=== PATIENT | female | born 1955 | race Caucasian/White ===

== ENCOUNTER 2023-07-05 06:08 | Day surgery (SDC) | payer MEDICARE, OTHER, SELFPAY ==
[2023-07-05 06:28] VITALS: BP 147/100; PULSE 63; RESP 16; TEMP 36.3; O2SAT 98
[2023-07-05 06:29] VITALS: BMI 28.5
[2023-07-05] MEDS: TETRACAINE 0.5% OPHTH 1 DROP EYE-LEFT ×2 (06:30→06:35)
[2023-07-05] MEDS: KETOROLAC OPHTH 0.5% 1 DROP EYE-LEFT ×3 (06:30→06:40)
[2023-07-05] MEDS: SODIUM CHLORIDE 0.9 % (FLUSH) 10 ML SYRINGE IVF (06:35)
--- NOTE | 2023-07-05 06:44 | SUR.PREOP ---
The eye drops brought by the patient (Ketorolac and Prednisolone) are examined and I have determined they are labeled by the patient's pharmacy for this patient as prescribed by the surgeon. The bottles are intact, recently obtained and appear to be correct.
[2023-07-05] MEDS: TETRACAINE 0.5% OPHTH 2 DROP EYE-LEFT (07:12)
[2023-07-05] MEDS: BALANCED SALT IRRIG SOLN 15 ML EYE-LEFT (07:17)
--- NOTE | 2023-07-05 07:20 | W.ANESCHARGE ---
Anesthesia Charges Start Date/Time Anesthesia Start Date: 07/05/23 Anesthesia Start Time: 07:10 Stop Date/Time Anesthesia Stop Date: 07/05/23 Anesthesia Stop Time: 07:40
[2023-07-05 07:40] VITALS: BP 149/92; PULSE 56; RESP 16; TEMP 36.3; O2SAT 99
--- NOTE | 2023-07-05 08:38 | W.PM.OPTPROC ---
Procedure Note Date of procedure: 07/05/23 Will [facility] bill your pro fee for this procedure?: Yes Procedure Description: SURGEON: Yadira Gonzalez MD PREOPERATIVE DIAGNOSIS: Nuclear sclerotic cataract, left eye. POSTOPERATIVE DIAGNOSIS: Nuclear sclerotic cataract, left eye. NAME OF OPERATION: Phacoemulsification of cataract with posterior chamber intraocular lens implantation in the left eye. ANESTHESIA: Topical. ESTIMATED BLOOD LOSS: Less than 2 cc. COMPLICATIONS: None. PATHOLOGY SPECIMEN: None. INDICATIONS: See consult note for details. The risks, benefits and alternatives of the procedure were explained to the patient, who elected to proceed and signed informed consent to do so. PROCEDURE: The patient was brought to the pre-holding area where the left eye was identified as the operative eye. I placed my initials above this eye. The patient received eye drops consisting of 0.5% tetracaine, 1% tropicamide, 10% phenylephrine, and 0.5% ketorolac. The patient was then brought to the operating room where the left eye was again identified as the operative eye. The eye was prepped with Betadine and draped in the usual sterile ophthalmic fashion. A #15 super-sharp blade was used to create a paracentesis site. 1% non-preserved intracameral lidocaine was injected into the anterior chamber. Endocoat was injected into the anterior chamber. A 2.4 mm keratome was used to create a three-plane self-sealing incision 1 mm anterior to the temporal limbus. A cystotome was used to create an anterior capsular leaflet. The Utrata forceps were used to extend this to form a continuous curvilinear capsulorrhexis. Hydrodissection was performed. The cataract was removed with phacoemulsification using the wcjcah-tnu-fkripdh technique. The irrigation and aspiration tip was used to remove the remaining cortex. Healon was injected into the capsular bag. An DANIA ZCB00 intraocular lens of 22.5 diopters was injected into the capsular bag. The irrigation and aspiration tip was used to remove the remaining viscoelastic. Balanced salt solution on a cannula was used to hydrate the wound, and the wound was found to be watertight. The pupil was noted to be round. DISPOSITION: The patient was taken to the recovery room and discharged to home in stable condition. The patient was instructed to call me or go to the emergency department with any sudden change, including dramatic loss of vision, severe pain in the eye or eyebrow region, nausea, or vomiting. The patient will follow up in the clinic tomorrow morning.
--- NOTE | 2023-07-05 10:20 | W.ANESCHARGE ---
Anesthesia Charges Start Date/Time Anesthesia Start Date: 07/05/23 Anesthesia Start Time: 07:10 Stop Date/Time Anesthesia Stop Date: 07/05/23 Anesthesia Stop Time: 07:40
== END 2023-07-05 08:11 | disposition home or self-care (01) ==
LOC: OR 06:09
PROVIDERS: PCP Physician Assistant Medical; Visit Provider Ophthalmology
PROC: (CPT 66984; principal; 2023-07-05 06:15)
DX: H25.12 Age-related nuclear cataract, left eye (principal)
CPT/HCPCS: 66984; 142; A9270; J2250; J3010; V2632

== ENCOUNTER 2023-07-19 06:05 | Day surgery (SDC) | payer MEDICARE, OTHER, SELFPAY ==
[2023-07-19] MEDS: TETRACAINE 0.5% OPHTH 1 DROP EYE-RIGHT ×2 (06:30→06:36)
[2023-07-19] MEDS: KETOROLAC OPHTH 0.5% 1 DROP EYE-RIGHT ×3 (06:34→06:48)
[2023-07-19 06:39] VITALS: BP 145/98; PULSE 55; RESP 16; TEMP 36.5; O2SAT 98
[2023-07-19 06:50] VITALS: BMI 28.3
[2023-07-19] MEDS: SODIUM CHLORIDE 0.9 % (FLUSH) 10 ML SYRINGE IVF (06:52)
[2023-07-19] MEDS: TETRACAINE 0.5% OPHTH 2 DROP EYE-RIGHT (07:12)
[2023-07-19] MEDS: BALANCED SALT IRRIG SOLN 15 ML EYE-RIGHT (07:15)
--- NOTE | 2023-07-19 07:18 | W.ANESCHARGE ---
Anesthesia Charges Start Date/Time Anesthesia Start Date: 07/19/23 Anesthesia Start Time: 07:07 Stop Date/Time Anesthesia Stop Date: 07/19/23 Anesthesia Stop Time: 07:40
[2023-07-19 07:51] VITALS: BP 156/90; PULSE 53; RESP 16; TEMP 36.1; O2SAT 98
--- NOTE | 2023-07-19 07:58 | W.ANESCHARGE ---
Anesthesia Charges Start Date/Time Anesthesia Start Date: 07/19/23 Anesthesia Start Time: 07:07 Stop Date/Time Anesthesia Stop Date: 07/19/23 Anesthesia Stop Time: 07:40
--- NOTE | 2023-07-19 09:10 | P.OPTPRC_ITS ---
Procedure Note Date of procedure: 07/19/23 Will [facility] bill your pro fee for this procedure?: Yes Procedure Description: SURGEON: Yadira Gonzalez MD PREOPERATIVE DIAGNOSIS: Nuclear sclerotic cataract, right eye. POSTOPERATIVE DIAGNOSIS: Nuclear sclerotic cataract, right eye. NAME OF OPERATION: Phacoemulsification of cataract with posterior chamber intraocular lens implantation in the right eye. ANESTHESIA: Topical. ESTIMATED BLOOD LOSS: Less than 2 cc. COMPLICATIONS: None. PATHOLOGY SPECIMEN: None. INDICATIONS: See consult note for details. The risks, benefits and alternatives of the procedure were explained to the patient, who elected to proceed and s igned informed consent to do so. PROCEDURE: The patient was brought to the pre-holding area where the right eye was identified as the operative eye. I placed my initials above this eye. The patient received eye drops consisting of 0.5% tetracaine, 1% tropicamide, 10% phenylephrine, and 0.5% ketorolac. The patient was then brought to the operating room where the right eye was again identified as the operative eye. The eye was prepped with Betadine and draped in the usual sterile ophthalmic fashion. A #15 super-sharp blade was used to create a paracentesis site. 1% non-preserved intracameral lidocaine was injected into the anterior chamber. Endocoat was injected into the anterior chamber. A 2.4 mm keratome was used to create a three-plane self-sealing incision 1 mm anterior to the temporal limbus. A cystotome was used to create an anterior capsular leaflet. The Utrata forceps were used to extend this to form a continuous curvilinear capsulorrhexis. Hydrodissection was performed. The cataract was removed with phacoemulsification using the [id number]-bos-rusyfpl technique. The irrigation and aspiration tip was used to remove the remaining cortex. Healon was injected into the capsular bag. An DANIA ZCB00 intraocular lens of 22.0 diopters was injected into the capsular bag. The irrigation and aspiration tip was used to remove the remaining viscoelastic. Balanced salt solution on a cannula was used to hydrate the wound, and the wound was found to be watertight. The pupil was noted to be round. DISPOSITION: The patient was taken to the recovery room and discharged to home in stable condition. The patient was instructed to call me or go to the emergency department with any sudden change, including dramatic loss of vision, severe pain in the eye or eyebrow region, nausea, or vomiting. The patient will follow up in the clinic tomorrow morning.
== END 2023-07-19 08:00 | disposition home or self-care (01) ==
PROVIDERS: PCP Physician Assistant Medical; Visit Provider Ophthalmology
PROC: (CPT 66984; principal; 2023-07-19 06:15)
DX: H25.11 Age-related nuclear cataract, right eye (principal)
CPT/HCPCS: 66984; 142; J2250; J3010; V2632

== ENCOUNTER 2025-09-02 10:29 | Day surgery (SDC) | payer MEDICARE, OTHER, SELFPAY ==
[2025-09-02] VITALS (23 sets, daily range): BP systolic 103–179; BP diastolic 66–97; PULSE 65–92; RESP 12–18; TEMP 36.3–37.5; O2SAT 94–100; BMI 28.8
[2025-09-02] MEDS: OXYCODONE (CR) 10 MG TAB.ER.12H PO (11:38)
[2025-09-02] MEDS: CELECOXIB 200 MG CAPSULE PO (11:38)
[2025-09-02] MEDS: ACETAMINOPHEN 500 MG TABLET 1000 MG PO ×3 (11:38→23:59)
[2025-09-02] MEDS: LACTATED RINGERS 1000 ML 1,000 ML 100 ML IV ×2 (11:45→13:00)
[2025-09-02] MEDS: SODIUM CHLORIDE 0.9 % (FLUSH) 10 ML SYRINGE IVF (11:45)
--- NOTE | 2025-09-02 12:14 | SUR.PREOP ---
2 small closed scabbed over areas noted on left elbow from sling rubbing on skin.
[2025-09-02] MEDS: MIDAZOLAM HCL 1 MG/ML inj IVP (12:17)
--- NOTE | 2025-09-02 12:19 | SUR.PREOP ---
TIME?OUT:?1216 PT/RN/MDA?VERIFICATION?OF?SURGICAL?SITE,?PROCEDURE,?AND?CONSENT OBTAINED?PRIOR?TO?INVASIVE?PROCEDURE. all in agreement
[2025-09-02] MEDS: TRANEXAMIC ACID 100 MG/ML INJ 1000 MG IV (12:45)
--- NOTE | 2025-09-02 13:03 | W.PM.NB ---
Nerve Block Nerve Block Time Seen by Provider: 12:20 Date Seen: 09/02/25 Type of block requested by surgeon for post-operative analgesia: supraclavicular Side: left Time out performed: Yes Verification of patient name: Yes Verification of date of : Yes Site marking: site marked Name of person performing procedure: Misael Continuous monitoring Was continuous monitoring of O2 sat, B/P, cardiac technologist, recorded every 15 minutes?: Yes Procedure Checklist: sterile prep, needles and gloves Ultrasound guided. Images saved: Yes Medications given in 5ml increments after negative aspiration: Marcaine %: 0.25 mL: 5 and Exparel mL: 10 Needle gauge: 22 Patient tolerated procedure well: Yes Block Charges Block Charge (with Pro Fee): Brachial Plexus Use of Ultrasound Machine for Block: Yes- US Guidance/pain block
--- NOTE | 2025-09-02 13:04 | P.ANES_ITS ---
Anesthesia Charges Start Date/Time Anesthesia Start Date: 09/02/25 Anesthesia Start Time: 12:29 Stop Date/Time Anesthesia Stop Date: 09/02/25 Anesthesia Stop Time: 16:24 Summary Extremes of Age - Over 70 or under 1: MDA Coding CPT Codes CPT Codes: ANESTH SHOULDER REPLACEMENT - 32125 ([id number]) P3 - PATIENT W/SEVERE SYS DISEASE, QK - RN PRIVATE DUTY 2-4 CNCRNT ANES PROC, QX - ROAD ROLLER OPERATOR SVC W/ MD MED DIRECTION Additional Codes: Summary - Extremes of Age - Over 70 or under 1: MDA ([id number])
--- NOTE | 2025-09-02 13:04 | W.ANESCHARGE ---
Anesthesia Charges Start Date/Time Anesthesia Start Date: 09/02/25 Anesthesia Start Time: 12:29 Stop Date/Time Anesthesia Stop Date: 09/02/25 Anesthesia Stop Time: 16:24 Summary Extremes of Age - Over 70 or under 1: MDA Coding CPT Codes CPT Codes: ANESTH SHOULDER REPLACEMENT - 47878 ([id number]) P3 - PATIENT W/SEVERE SYS DISEASE, QK - MARKETING GRAPHICS SPECIALIST 2-4 CNCRNT ANES PROC, QX - INSOLVENCY PRACTITIONER SVC W/ MD MED DIRECTION Additional Codes: Summary - Extremes of Age - Over 70 or under 1: MDA ([id number])
--- NOTE | 2025-09-02 15:41 | CRLHL7_ITS ---
For Patients: As a result of the Century Cures Act, medical imaging exams and procedure reports are released immediately into your electronic medical record. You may view this report before your referring provider. If you have questions, please contact your health care provider. Indication: LT SHOULDER POST OP TSA Technique: Two views left shoulder Findings/Impression: Hardware from a left shoulder arthroplasty is in satisfactory position. Bone alignment is normal. No sign of acute fracture. Postop changes are within normal limits. Dictated by Michael Edward MD @ 09/03/2025 8:28:22 AM (Electronically Signed)
--- NOTE | 2025-09-02 16:14 | PM.IMCN1 ---
Date of Consult Patient: Vinny Patient Consult date: 09/02/25 Requesting Physician: Orthopedics Primary Care Provider: Tiffanie Boykin PA-C Consult Narrative Reason for consult: Medical management Narrative: Vanita Allen is a 70 year old female past medical history significant for hypertension, hyperlipidemia, CAD, history of NSTEMI, vitamin-D deficiency is postop day #0 status post left total shoulder with Dr. Gonzalez. Postoperatively, patient Remains quite sleepy. Mildly nauseous, no vomiting. Pain is currently well managed. There have been no perioperative complications or nursing concerns reported. Estimated total blood loss documented as 300ml. Updated and reviewed the active medical problems, past medical history, past surgical history, social history, allergies and medications in our electronic EMR. Review of Systems Narrative: REVIEW OF SYSTEMS: Complete review of systems performed and negative unless otherwise stated in HPI or below. 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) ?Z96.611 - Presence of right artificial shoulder joint (ICD-10) History of phacoemulsification of cataract of left eye with intraocular lens implantation (07/05/23) ?Z98.42 - Cataract extraction status, left eye (ICD-10) ?Z96.1 - Presence of intraocular lens (ICD-10) History of phacoemulsification of cataract of right eye with intraocular lens implantation (07/19/23) ?Z98.41 - Cataract extraction status, right eye (ICD-10) ?Z96.1 - Presence of intraocular lens (ICD-10) Family History Father Myocardial infarction Sister Heart problem Sister Heart problem Social History What is your current living situation?: I presently have a place to live Problems where you live: no known problems In the past 12 months, utilities in danger of being shut off: no In past 12 months, lack of transportation kept you from medical appts, meetings, work, or getting things needed for daily living: no In the past 12 mos, have been you worried that your food would run out before you had money to buy more?: never true In the past 12 mos, the food you bought just didn't last and you didn't have money to buy more?: never true Smoking Status: Never smoker Do you use any of these nicotine containing products: None Second hand tobacco smoke exposure: No How often do you have a drink containing alcohol: 4 or more times a week Alcohol type: wine How many standard drinks containing alcohol do you have on a typical day: 1 or 2 How often do you have six or more drinks on one occasion: Never AUDIT-C Alcohol total score: 4 Non-prescribed substance use: denies use Caffeine: No How often does anyone, including family, friends and others, physically hurt you: never How often does anyone, including family, friends and others, insult or talk down to you: never How often does anyone, including family, friends and others, threaten you with harm: never How often does anyone, including family, friends and others, scream or curse at you: never Are you using contraception or practicing any form of control: No Meds Home Medications and Allergies Home Medications ?Medication ?Instructions ?Recorded ?Confirmed ?Type ascorbic acid (vitamin C) 1,000 mg 1 g PO DAILY 06/20/22 09/02/25 History tablet aspirin 81 mg tablet,delayed 81 mg PO DAILY 06/20/22 09/02/25 History release atorvastatin 80 mg tablet 80 mg PO DAILY 06/20/22 09/01/25 History calcium 600 mg (as 1 tab PO DAILY 06/20/22 09/02/25 History carbonate)-vitamin D3 10 mcg (400 unit) tablet ezetimibe 10 mg tablet 10 mg PO DAILY 06/20/22 09/02/25 History metoprolol tartrate 25 mg tablet 25 mg PO BID 06/20/22 09/02/25 History multivitamin 1 tab PO QDAY 06/20/22 09/02/25 History nitroglycerin 0.4 mg sublingual 0.4 mg buccal Q5M PRN 06/20/22 09/01/25 History tablet olmesartan 20 mg tablet 20 mg PO DAILY 07/19/23 09/02/25 History latanoprost 0.005 % eye drops 1 drp ophthalmic (eye) QDAY 06/10/25 09/01/25 History acetaminophen 500 mg capsule 500 - 1,000 mg (1 - 2 x 500 mg) PO 09/02/25 Rx Q6H PRN pain #100 caps oxycodone 5 mg tablet 2.5 - 5 mg (0.5 - 1 x 5 mg) PO 09/02/25 Rx Q4-6H PRN Pain #42 tabs sennosides 8.6 mg tablet (Senna 17.2 mg (2 x 8.6 mg) PO BID PRN 09/02/25 Rx Lax) constipation #100 tabs Allergies Allergy/AdvReac Type Severity Reaction Status Date / Time nickel Allergy Mild Rash Verified 09/01/25 10:01 Exam Narrative: Exam Narrative: PHYSICAL EXAM General: Pleasant, conversant, NAD HEENT: Normocephalic, atraumatic, sclera white, EOMI, oral mucosa moist Cardiovascular: RRR, S1S2. No pitting edema Pulmonary: CTA bilaterally without rhonchi, rales, expiratory wheezes. No dyspnea Neurological: Alert, answering questions appropriately, cranial nerves intact, no focal findings Extremities: No gross joint deformity or swelling. Postoperative dressing in place, dry. immobilizer in place. Neurovascularly intact Skin: Warm, dry. Const: Vital Signs, click to edit/add: Vital Signs - 24 hr 09/02/25 11:55 09/02/25 12:20 09/02/25 12:23 Temperature 98.0 F Pulse Rate 68 66 67 Respiratory Rate 16 16 14 Blood Pressure 179/93 H 152/79 H 150/79 H Pulse Oximetry 100 97 98 Oxygen Delivery Me thod Room Air Nasal Cannula Nasal Cannula Oxygen Flow Rate 2 2 Assessment and Plan Assessment and plan (1) Osteoarthritis of left shoulder: Problem comment: -POD#0 s/p Left Total Shoulder, Dr. Gonzalez 09/02/25 -perioperative management including pain management and anticoagulation per Orthopedic surgery -encourage postoperative pulmonary hygiene following total shoulder -PT OT consults -EBL 300 mL, check hemoglobin in the morning -plan to discharge home with Spouse tomorrow Status: Chronic (2) Hypertension: Problem comment: - resume home meds on discharge, consider morning dose if necessary, monitoring pressures postoperatively Status: Acute Plan May resume home medications upon discharge. Consider antihypertensives in the morning if necessary. Hospital medicine team will sign off. Please contact our service with any questions or concerns. Total Time Spent Total Time Spent: Today I spent 55 minutes seeing the patient, reviewing Expanse and EPIC notes/diagnostics, discussing the care plan with our care time that includes social work, PT/OT, pharmacy, RT, mcfp and documenting my impressions and plan in the medical record.
--- NOTE | 2025-09-02 16:26 | P.ANES_ITS ---
Anesthesia Charges Start Date/Time Anesthesia Start Date: 09/02/25 Anesthesia Start Time: 12:29 Stop Date/Time Anesthesia Stop Date: 09/02/25 Anesthesia Stop Time: 16:24 Summary Extremes of Age - Over 70 or under 1: SHODER FILLER Coding CPT Codes CPT Codes: ANESTH SHOULDER REPLACEMENT - 09814 ([id number]) P3 - PATIENT W/SEVERE SYS DISEASE, QK - INTERFACE ANALYST 2-4 CNCRNT ANES PROC, QX - SHODER FILLER SVC W/ MD MED DIRECTION Additional Codes: Summary - Extremes of Age - Over 70 or under 1: SHODER FILLER ([id number])
--- NOTE | 2025-09-02 16:26 | W.ANESCHARGE ---
Anesthesia Charges Start Date/Time Anesthesia Start Date: 09/02/25 Anesthesia Start Time: 12:29 Stop Date/Time Anesthesia Stop Date: 09/02/25 Anesthesia Stop Time: 16:24 Summary Extremes of Age - Over 70 or under 1: SOCIAL WORKER PSYCHIATRIC Coding CPT Codes CPT Codes: ANESTH SHOULDER REPLACEMENT - 05946 ([id number]) P3 - PATIENT W/SEVERE SYS DISEASE, QK - PRIVACY ATTORNEY 2-4 CNCRNT ANES PROC, QX - SOCIAL WORKER PSYCHIATRIC SVC W/ MD MED DIRECTION Additional Codes: Summary - Extremes of Age - Over 70 or under 1: SOCIAL WORKER PSYCHIATRIC ([id number])
--- NOTE | 2025-09-02 16:38 | P.ORPRC_ITS ---
Procedure Note Date of procedure: 09/02/25 Procedure: PREOPERATIVE DIAGNOSIS: Left shoulder end-stage glenohumeral joint osteoarthritis, 2 part proximal humerus fracture POSTOPERATIVE DIAGNOSIS: Left shoulder end-stage glenohumeral joint osteoarthritis, 2 part proximal humerus fracture NAME OF OPERATION: Left upper extremity reverse shoulder arthroplasty, biceps tenodesis SURGEON: Uriah Gonzalez MD INSTALLATION SERVICE REPRESENTATIVE: Hoda Hoyos PA-C ANESTHESIA: General endotracheal ESTIMATED BLOOD LOSS: 300 mL COMPLICATIONS: None SPECIMENS: None DRAINS: None PREOPERATIVE ANTIBIOTICS: Ancef 2 grams IMPLANTS: 1. Tornier 29mm x 35 mm +3 lateralized baseplate 2. 36mm standard glenosphere 3. 8 Perform humeral fracture stem 4. 36mm polyethylene INDICATIONS: The patient is a 70-year-old with a longstanding history of severe, unrelenting left shoulder pain secondary to end-stage glenohumeral joint osteoarthritis. She fell last week, sustaining a 2 part proximal humerus fracture. Operative intervention was offered. The risks, benefits and expected outcomes were discussed in detail. These included but were not limited to: Infection, bleeding, injury to blood vessel or nerve, venous thromboembolism. All questions were answered to their satisfaction. Use of an surgical physician assistant was necessary throughout the case for patient positioning and safety, soft tissue retraction, and closure. A modifier 22 should be added to this case. The bone loss, deformity and stiffness, in addition to the fracture deformity added complexity to the case. This more than doubled the time typically required to complete the case. PROCEDURE: General anesthesia was administered. The patient was placed in the lazy beach chair position on the operating room table. The left upper extremity was prepped and draped in the usual sterile fashion. A standard deltopectoral incision was made. Subcutaneous dissection was taken with electrocautery to the deltopectoral interval. The cephalic vein was mobilized, lateral branches were cauterized. The vein was taken medially with the pectoralis. We bluntly entered the deltopectoral interval. We freed up the deltoid. The static retractor was placed. The clavipectoral fascia and CA ligament were divided. The circumflex vessels were controlled with electrocautery. The biceps was dissected out of the bicipital groove, was tagged with a #2 FiberWire suture and divided proximally. A fiberWire suture was placed in the subscapularis. The subscap was subperiosteally elevated off of the lesser tuberosity. We resected the huge inferior osteophyte off of the glenoid and humeral head. This allowed us to expose the head fragment. It was controlled with a Nesbitt reduction clamp and externally rotated. Articular cartilage was gone and the head was almost concave, secondary to the osteoarthritis deformity. A conservative head oste otomy was made. The head and tuberosity fragment were displaced posteriorly. This allowed us to deliver the shaft into the wound. There was a large calcar fragment which was displaced posteriorly. This was reduced anteriorly and was secured with a super cable cerclage. This nicely reconstructed the proximal humerus. Attention was then turned to the glenoid. Hohmann retractors were placed posteriorly. The labrum and biceps stump were sharply debrided. The drill guide was placed. The guide pin was placed in 0? of cephalic tilt. The reamer was used to bleeding bone inferiorly. Given the bone loss, the superior portion was under reamed. The bone was quite sclerotic. The central drill was used x2. The +3 lateralized base plate was placed. This had excellent purchase. Locking screws x 2 were placed. The glenosphere was placed, the set screw was tightened. Attention then returned to the humerus. We placed a #8 trial stem. Standard poly was placed. We reduced the shoulder and took it through a range of motion. It was found to be stable with appropriate soft tissue tension. The #8 stem was placed. The poly was placed. The shoulder was reduced. We then reduced the tuberosity fragment to the prosthesis. The subscap was repaired with a #2 FiberWire suture to the lesser tuberosity through drill holes. Likewise, the greater tuberosity was secured to the shaft with a #2 FiberWire suture x2. A soft tissue biceps tenodesis was done in the bicipital groove. The shoulder was found to be stable with appropriate soft tissue tension. We did a 3 min dilute Betadine solution soak. We irrigated the wound with 3 L of normal saline via pulse lavage. The deltopectoral interval was loosely reapproximated with an 0 Vicryl in an interrupted pcaqya-iy-cslup fashion. Subcutaneous tissues were closed with the 2-0 Vicryl and a running 3-0 Monocryl suture. The skin was sealed with glue. A dry dressing and sling were applied. Sponge and needle counts were correct x2. The patient tolerated the procedure well, there were no apparent complications. They were awakened and extubated in the operating room, taken to the postanesthesia care unit in satisfactory co ndition. PLAN: The sling will be used for 6 weeks postoperatively, no active range of motion of the shoulder. She can work on active range of motion of the elbow wrist and fingers. She will be discharged to home once medically appropriate.
[2025-09-02] MEDS: PROCHLORPERAZINE 5 MG/ML VIAL IV (17:40)
[2025-09-02] MEDS: LACTATED RINGERS 1000 ML 1,000 ML 75 ML IV (17:57)
--- NOTE | 2025-09-02 18:42 | PC.NURSE ---
Addendum entered by Neda Au RN 09/02/25 19:03: skin comment: Bruises noted on R hip and L underarm areas. Pt. reported they are from her fall last week Original Note: end of shift: Pt. AOx4. VSS. Afebrile. Pt. reported nausea, med given--see EMAR. Pt. surgical site dressing on L anterior shoulder C/D/I. Sling in place. Active ice applied. Pt. refused SCDS. bedside and supportive. Movement in L hand. Tolerating food and oral fluids.
[2025-09-02] MEDS: CEFAZOLIN 2 GM in 0.9 % SODIUM CHLORIDE Mini-bag 100 ML IVPB (18:44)
[2025-09-02] MEDS: SENNOSIDES 1 TAB TABLET 2 TAB PO (21:00)
[2025-09-03] MEDS: CEFAZOLIN 2 GM in 0.9 % SODIUM CHLORIDE Mini-bag 100 ML IVPB (03:00)
[2025-09-03 03:05] VITALS: BP 114/69; PULSE 68; RESP 16; TEMP 36.7; O2SAT 96
[2025-09-03] MEDS: ACETAMINOPHEN 500 MG TABLET 1000 MG PO (06:14)
[2025-09-03 06:49] LABS: Hemoglobin* 10.4 gm/dL (12.0-16.0)
[2025-09-03 07:00] VITALS: BP 150/80; PULSE 73; RESP 14; TEMP 36.5; O2SAT 97
--- NOTE | 2025-09-03 07:02 | PC.NURSE ---
Pt is alert and oriented x3. Afebrile. Pt reports 1/10 pain in left shoulder, managed with Ice pack and scheduled medications. Pt?s left shoulder dressing is CDI. Pt is up SBA, voiding and tolerating a regular diet. Pt reports passing gas.
[2025-09-03] MEDS: SENNOSIDES 1 TAB TABLET 2 TAB PO (07:31)
--- NOTE | 2025-09-03 08:03 | PM.ORPN ---
Subjective Subjective Time Seen by Provider: 08:03 Date Seen: 09/03/25 Principal diagnosis: Status post left reverse total shoulder arthroplasty, biceps tenodesis Interval history: Viridiana underwent left reverse shoulder arthroplasty and biceps tenodesis after fracturing her proximal humerus. She also had severe end-stage glenohumeral joint osteoarthritis. She is comfortable this morning. She has the ability to range her wrist, fingers and has sensation in her left fingers today. Ortho Exam Narrative Exam Narrative: Alert and oriented x3. Patient is in no acute distress. Converses without labored breathing. Hearing is grossly intact. Ambulates with a normal gait. Examination of the left shoulder shows the dressing is intact. No erythema or warmth or sign of infection. Significant ecchymosis is present. This was present prior to surgery. CMS intact in her left hand. She is able to flex and extend the wrist, perform thumbs up, sensation is normal in her fingers. Soft tissue edema is present as it was prior to surgery in her left upper extremity. Const Vital Signs, click to edit/add: Vital Signs - 24 hr 09/02/25 11:55 09/02/25 12:20 09/02/25 12:23 Temperature 98.0 F Pulse Rate 68 66 67 Pulse Rate [Right Pulse Oximeter] Respiratory Rate 16 16 14 Blood Pressure 179/93 H 152/79 H 150/79 H Blood Pressure [Right Arm] Pulse Oximetry 100 97 98 Oxygen Delivery Method Room Air Nasal Cannula Nasal Cannula Oxygen Flow Rate 2 2 09/02/25 16:19 09/02/25 16:25 09/02/25 16:30 Temperature 97.4 F L Pulse Rate 87 92 90 Pulse Rate [Right Pulse Oximeter] Respiratory Rate 16 14 14 Blood Pressure 147/89 H 147/97 H 147/89 H Blood Pressure [Right Arm] Pulse Oximetry 97 98 96 Oxygen Delivery Method Room Air Oxygen Flow Rate 09/02/25 16:35 09/02/25 16:40 09/02/25 16:45 Temperature Pulse Rate 86 84 80 Pulse Rate [Right Pulse Oximeter] Respiratory Rate 16 13 14 Blood Pressure 142/85 H 140/78 H 144/83 H Blood Pressure [Right Arm] Pulse Oximetry 98 99 98 Oxygen Delivery Method Oxygen Flow Rate 09/02/25 16:50 09/02/25 16:55 09/02/25 17:20 Temperature 98.2 F Pulse Rate 79 78 Pulse Rate [Right Pulse Oximeter] 76 Respiratory Rate 12 14 14 Blood Pressure 146/77 H 138/79 Blood Pressure [Right Arm] 144/81 H Pulse Oximetry 99 99 98 Oxygen Delivery Method Room Air Oxygen Flow Rate 09/02/25 17:35 09/02/25 17:50 09/02/25 18:05 Temperature 98.2 F 99.5 F Pulse Rate Pulse Rate [Right Pulse Oximeter] 77 80 82 Respiratory Rate 14 16 Blood Pressure Blood Pressure [Right Arm] 149/86 H 150/91 H 133/69 Pulse Oximetry 98 97 94 Oxygen Delivery Method Room Air Room Air Room Air Oxygen Flow Rate 09/02/25 18:20 09/02/25 18:50 09/02/25 19:10 Temperature 98.2 F 98.6 F 98.2 F Pulse Rate Pulse Rate [Right Pulse Oximeter] 83 86 75 Respiratory Rate 16 18 16 Blood Pressure Blood Pressure [Right Arm] 132/72 140/81 H 115/70 Pulse Oximetry 95 98 96 Oxygen Delivery Method Room Air Room Air Room Air Oxygen Flow Rate 09/02/25 20:00 09/02/25 21:00 09/02/25 22:00 Temperature 98.3 F Pulse Rate Pulse Rate [Right Pulse Oximeter] 76 65 65 Respiratory Rate 16 16 16 Blood Pressure Blood Pressure [Right Arm] 130/74 114/66 108/82 Pulse Oximetry 97 98 97 Oxygen Delivery Method Room Air Room Air Room Air Oxygen Flow Rate 09/02/25 23:00 09/02/25 23:58 09/03/25 03:05 Temperature 98.1 F 98.1 F Pulse Rate Pulse Rate [Right Pulse Oximeter] 74 68 Respiratory Rate 16 16 16 Blood Pressure Blood Pressure [Right Arm] 103/66 114/69 Pulse Oximetry 96 97 96 Oxygen Delivery Method Room Air Room Air Room Air Oxygen Flow Rate 09/03/25 07:00 Temperature 97.7 F Pulse Rate Pulse Rate [Right Pulse Oximeter] 73 Respiratory Rate 14 Blood Pressure Blood Pressure [Right Arm] 150/80 H Pulse Oximetry 97 Oxygen Delivery Method Room Air Oxygen Flow Rate Assessment and Plan Assessment and plan (1) Status post reverse arthroplasty of left shoulder: Problem details: Also biceps tenodesis and cable placement of proximal humerus fracture. Date of surgery 09/02/2025, Dr. Gonzalez Status: Acute Assessment and Plan: Viridiana is comfortable at this time. She will wear the sling for 6 weeks. She can take it off for comfort, hygiene, ranging the elbow, wrist, fingers on the left. Plan for discharge is to home today when they meet discharge criteria. We will hold on physical therapy for 6 weeks. For discharge, oxycodone and Tylenol for pain. Do not drive while on narcotic pain medication. Drive only when safe to do so, when they have normal use/function of the upper extremity, this will likely take 6 weeks. Patient will minimize and discontinue the narcotic as soon as possible. Dressing will be removed at postoperative appointment. Dressing is waterproof. May shower. Expect swelling and bruising about the shoulder and upper extremity. Use of ice/active ice without restriction. Notify Orthopedics if swelling is excessive. notify Orthopedics with any questions or concerns. [phone] Return to Orthopedic clinic next week for a wound check Return to clinic in [address] Gonzalez.
[2025-09-03 10:56] VITALS: BP 122/76; PULSE 73; RESP 16; TEMP 36.7; O2SAT 98
--- NOTE | 2025-09-03 12:49 | PC.SOCIAL ---
Discharge planning: vegetable harvest worker completed the Initial Psychosocial Assessment with the pt before she discharged from the hospital...see the below answers... Initial Psychosocial Assessment: 1.? Assessment completed with: Patient, Spouse, Child, Friend, Other: Patient and her spouse. 2.? Pt lives at address and phone number on face sheet? Own home; facility , Other: Lives at home with her in a house. 3.?Insurance information? on face sheet is correct? Yes. 4.?Contacts? on face sheet are correct? Yes. 5.? Does pt have a Healthcare Directive, POLST or Guardian? No. 6.? Who is the pt?s main source/sources of emotional/physical support? Pt's , [employer]. 7.? Prior to admission did pt need assistance? Yes/No No. 8.? Who provided and what was the assistance needed? N/A. 9.? Was Home Health being provided, by what agency? No. 10. Does pt use/have medical equipment at home already? What? No. 11. Will there be a need for additional assistance at discharge and is this available in previous setting? Yes, due to shoulder surgery. 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 12. If pt needs to go to a higher level of care, are they open to this and do they have facilities they are interested in? N/A. 13. How would pt plan to transport at discharge? . 14. Is there anyone pt would like director of social media marketing to contact to discuss discharge plans? No.
== END 2025-09-03 11:15 | disposition home or self-care (01) ==
LOC: OR 10:31 → MEDSURG 10:31
PROVIDERS: Physician Assistant; PCP Physician Assistant Medical; Visit Provider Orthopaedic Surgery
PROC: 0RRJ0JZ Replacement of Right Shoulder Joint with Synthetic Substitute, Open Approach (ICD-10-PCS; CPT 23472; principal; 2025-09-02 12:30)
DX: M19.012 Primary osteoarthritis, left shoulder (principal); S42.222A 2-part displaced fracture of surgical neck of left humerus, initial encounter for closed fracture; G89.18 Other acute postprocedural pain; I10 Essential (primary) hypertension; I25.10 Atherosclerotic heart disease of native coronary artery without angina pectoris; I25.2 Old myocardial infarction; E55.9 Vitamin D deficiency, unspecified; E78.5 Hyperlipidemia, unspecified
CPT/HCPCS: 23472; 23430; 01638; 36415; 64415; 73030; 76942; 85018; 97110; 97165; 97535; 99100; A9270; C1713; C1776; J0330; J0665; J0666; J0690; J0780; J1171; J2250; J2371; J2704; J3010; J7120; L3670